=== PATIENT | female | born 1990 | race Two or more races ===

== ENCOUNTER 2016-12-18 22:21 | Emergency (ER) | payer MEDICAID ==
[2016-12-18] MEDS ORDERED: HYDROcod/ACETAM 5/325 MG TABLET PO STA (22:55)
[2016-12-18] MEDS ORDERED: ONDANSETRON ODT 4 MG TABLET TL STA (22:55)
[2016-12-18] MEDS ORDERED: HYDROcod/ACETAM 5/325 MG TABLET ONE (23:04)
[2016-12-18] MEDS ORDERED: ONDANSETRON ODT 4 MG TABLET ONE (23:04)
[2016-12-19] MEDS ORDERED: ONDANSETRON ODT 4 MG Prepack 2 TL STA (01:00)
[2016-12-19] MEDS ORDERED: HYDROcod/ACET 5/325 Prepack 6 PO STA (01:00)
[2016-12-19] MEDS ORDERED: ONDANSETRON ODT 4 MG Prepack 2 TL ONE (01:01)
[2016-12-19] MEDS ORDERED: HYDROcod/ACET 5/325 Prepack 6 PO ONE (01:01)
== END 2016-12-19 01:08 | disposition home or self-care (01) ==
DX: O21.0 Mild hyperemesis gravidarum (principal); Z3A.08 8 weeks gestation of pregnancy; O99.331 Smoking (tobacco) complicating pregnancy, first trimester; M54.9 Dorsalgia, unspecified
CPT/HCPCS: 36415; 76801; 76817; 81003; 84702; 85025; 86900; 86901; 99283; A9270; Q0162

== ENCOUNTER 2017-01-02 18:54 | Emergency (ER) | payer MEDICAID | END 2017-01-02 20:32 | disposition home or self-care (01) | DX: M54.5 Low back pain (principal); R03.0 Elevated blood-pressure reading, without diagnosis of hypertension; F17.200 Nicotine dependence, unspecified, uncomplicated ==

== ENCOUNTER 2017-01-05 23:39 | Emergency (ER) | payer MEDICAID ==
[2017-01-06] MEDS ORDERED: SODIUM CHLORIDE 0.9% 1,000 ML IV ONE (00:06)
[2017-01-06] MEDS ORDERED: diphenhydrAMINE INJ 50 MG/ML VIAL IVP STA (00:09)
[2017-01-06] MEDS ORDERED: METOCLOPRAMIDE 10 MG/2 ML VIAL IVP STA (00:09)
[2017-01-06] MEDS ORDERED: METOCLOPRAMIDE 10 MG/2 ML VIAL IVP ONE (00:23)
[2017-01-06] MEDS ORDERED: diphenhydrAMINE INJ 50 MG/ML VIAL ONE (00:23)
== END 2017-01-06 01:14 | disposition home or self-care (01) ==
DX: O21.0 Mild hyperemesis gravidarum (principal); O99.331 Smoking (tobacco) complicating pregnancy, first trimester; Z3A.10 10 weeks gestation of pregnancy

== ENCOUNTER 2017-01-28 15:23 | Outpatient (CLI) | payer MEDICAID | END 2017-01-28 15:24 | disposition home or self-care (01) | LOC: LAB.R 15:23 | PROVIDERS: ATTEND Obstetrics & Gynecology | DX: Z11.3 Encounter for screening for infections with a predominantly sexual mode of transmission (principal) | CPT/HCPCS: 87491; 87591 ==

== ENCOUNTER 2017-02-02 12:04 | Outpatient (CLI) | payer MEDICAID ==
[2017-02-02 12:44] LABS: BILIRUBIN,URINE NEGATIVE (NEGATIVE)
[2017-02-02 12:49] LABS: BASOPHILS % (AUTO) 0.2 %; EOSINOPHILS # (AUTO) 0.2 10^3/uL (0.0-0.7); EOSINOPHILS % (AUTO) 2.2 %; HCT - HEMATOCRIT 32.9 % (37.0-47.0); HGB - HEMOGLOBIN 11.4 g/dL (12.0-16.0); LYMPHOCYTES % (AUTO) 17.8 %; MEAN CORPUSCULAR HEMOGLOBIN 28.4 pg (27.0-31.0); MEAN CORPUSCULAR HGB CONC 34.8 g/dL (32.0-36.0); MEAN CORPUSCULAR VOLUME 81.6 fL (81.0-99.0); MEAN PLATELET VOLUME 8.3 fL (7.9-10.8); MONOCYTES # (AUTO) 0.6 10^3/uL (0.0-1.0); MONOCYTES % (AUTO) 5.2 %; NEUTROPHILS # (AUTO) 8.4 10^3/uL (1.5-6.6); NEUTROPHILS % (AUTO) 74.6 %; RED BLOOD COUNT 4.03 10^6/uL (4.20-5.40); UNCORRECTED WHITE BLOOD COUNT 11.2 x10^3/uL; WHITE BLOOD COUNT 11.2 x10^3/uL (4.8-10.8)
[2017-02-02 12:59] LABS: WBC,URINE 0-3 /HPF (0-5)
[2017-02-03 10:38] LABS: TEST RESULT REPORT (())
[2017-02-11 12:21] LABS: TEST RESULT REPORT (())
== END 2017-02-02 12:05 | disposition home or self-care (01) ==
LOC: LAB 12:04
PROVIDERS: ATTEND Obstetrics & Gynecology
DX: Z36 Encounter for antenatal screening of mother (principal)
CPT/HCPCS: 36415; 81001; 81511; 81599; 85025; 86762; 86780; 86850; 86900; 86901; 87340; 87389

== ENCOUNTER 2017-02-06 13:07 | Emergency (ER) | payer MEDICAID ==
[2017-02-06 13:19] VITALS: BP 117/70
--- NOTE | 2017-02-06 14:57 | ED Physician Documentation ---
PD HPI BACK PAIN - Stated complaint Stated Complaint: BACK PAIN - Chief complaint Chief Complaint: Back Pain - History obtained from History obtained from: Patient - History of Present Illness Timing - onset: How many days ago (last few days worse pain; back has been hurting for several weeks lately, diffuse lower back. She saw PCP and had several muscle injections (?trigger point) but did not really help. No meds Rx per patient.) Timing - duration: Weeks Timing - details: Gradual onset, Still present, Waxing and waning Location: Lower, Right, Left, Other (does not radiate to legs) Quality: Pain, Spasm Associated symptoms: No: Fever, Weakness, Numbness Improves with: Rest Worsened by: Movement, Lifting Contributing factors: No: Lifting, Twisting, Trauma Similar symptoms before: Diagnosis (muscular back pain) Recently seen: Clinic Review of Systems Constitutional: denies: Fever, Chills : denies: Dysuria, Frequency Skin: denies: Rash Neurologic: denies: Focal weakness, Numbness PD PAST MEDICAL HISTORY - Past Medical History 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) - Past Surgical History Past Surgical History: Yes /AIRCRAFT STEEL 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: section - Present Medications Home Medications: Ambulatory Orders Medication Instructions Recorded Confirmed HYDROcod/ACETAM 5/325 [[place] 5/325] 1 - 2 ea PO Q6H PRN #12 tablet 12/19/16 Ondansetron HCl [Zofran] 4 mg PO Q6HR PRN #14 tablet 12/19/16 02/06/17 Dexamethasone [Decadron] 4 mg PO DAILY #5 tablet 02/06/17 Methocarbamol [Robaxin] 500 mg PO Q6H PRN #25 tablet 02/06/17 Naproxen 375 mg PO BID #20 tablet 02/06/17 Ondansetron HCl [Zofran] 4 mg PO Q6H PRN #20 tablet 02/06/17 Oxycodone HCl/Acetaminophen 1 each PO Q6H PRN #20 tablet 02/06/17 [Percocet 5-325 mg Tablet] - Allergies Allergies/Adverse Reactions: Allergies Allergy/AdvReac Type Severity Reaction Status Date / Time walnut Allergy Unknown Verified 02/06/17 13:19 - Living Situation Living Arrangement: reports: At home - Social History Does the pt smoke?: Yes Smoking Status: Current every day smoker Does the pt drink ETOH?: No Does the pt have substance abuse?: No - Family History Family history: denies: Aortic aneursym, Aortic dissection - Immunizations Immunizations are current?: Yes - POLST Patient has POLST: No Results - Vitals Vitals: Oxygen O2 Source Room air PD MEDICAL DECISION MAKING - ED course Complexity details: considered differential, d/w patient Departure - Departure Disposition: Home, Self Care Clinical Impression: Back pain Qualifiers: Back pain location: low back pain Chronicity: acute Back pain laterality: bilateral Sciatica presence: without sciatica Qualified Code(s): M54.5 - Low back pain Condition: Stable Record reviewed to determine appropriate education?: Yes Instructions: ED Low Back Pain Injury Follow-Up: Jeff Jones MD [Provider Admit Priv/Credential] - Prescriptions: Dexamethasone [Decadron] 4 mg PO DAILY #5 tablet Naproxen 375 mg PO BID #20 tablet Oxycodone HCl/Acetaminophen [Percocet 5-325 mg Tablet] 1 each PO Q6H PRN #20 tablet PRN Reason: Pain Methocarbamol [Robaxin] 500 mg PO Q6H PRN #25 tablet PRN Reason: Spasms Ondansetron HCl [Zofran] 4 mg PO Q6H PRN #20 tablet PRN Reason: Nausea / Vomiting Comments: Heat and gentle range of motion for back. Naproxen twice daily for a week. Decadron also for inflammation daily for days. Robaxin muscle relaxant 3 times daily. Add Percocet pain med as needed for pain. Recheck with AIRCRAFT STEEL FABRICATOR/PMD next week. These are all okay at this point in (No anti-inflammatories as you get later in , like after 28-30 weeks). Discharge Date/Time: 02/06/17 15:47
[2017-02-06] MEDS ORDERED: METHOCARBAMOL 500 MG TABLET PO STA ×2 (15:12→15:39)
[2017-02-06] MEDS ORDERED: METHOCARBAMOL 500 MG TABLET PO ONE ×2 (15:21→15:42)
[2017-02-06] MEDS ORDERED: ONDANSETRON ODT 4 MG TABLET TL STA (15:38)
[2017-02-06] MEDS ORDERED: oxyCOD/ACETAMIN 5 MG/325 MG TABLET PO STA (15:38)
[2017-02-06] MEDS ORDERED: ONDANSETRON ODT 4 MG TABLET ONE (15:42)
[2017-02-06] MEDS ORDERED: oxyCOD/ACETAMIN 5 MG/325 MG TABLET PO ONE (15:42)
== END 2017-02-06 15:47 | disposition home or self-care (01) ==
LOC: ED 13:07
DX: O26.899 Other specified pregnancy related conditions, unspecified trimester (principal); M54.5 Low back pain; O99.330 Smoking (tobacco) complicating pregnancy, unspecified trimester; F17.200 Nicotine dependence, unspecified, uncomplicated; Z3A.00 Weeks of gestation of pregnancy not specified
CPT/HCPCS: 99283; A9270; Q0162

== ENCOUNTER 2021-02-02 13:13 | Emergency (ER) | payer MEDICAID ==
[2021-02-02 13:39] VITALS: BP 145/92
[2021-02-02] MEDS ORDERED: CLINDAMYCIN 150 MG CAPSULE PO STA (13:48)
[2021-02-02] MEDS ORDERED: oxyCODONE 5 MG TABLET PO STA (13:48)
--- NOTE | 2021-02-02 13:50 | ED Physician Documentation ---
History of Present Illness - Stated complaint Stated Complaint: TOOTH PX - Chief complaint Chief Complaint: Heent - History obtained from History obtained from: Patient - Additonal information Additional information: 30-year-old woman presents with severe dental pain. Is been going on for most of the week. Saw dentist and was started on Zithromax and Peridex. Scheduled for extraction on . Presents because pain was uncontrolled. Denies fevers or facial swelling. 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) - Past Surgical History Past Surgical History: Yes /FLYER REPAIRER: section - Present Medications Home Medications: Ambulatory Orders Medication Instructions Recorded Confirmed HYDROcod/ACETAM 5/325 [[place] 5/325] 1 - 2 ea PO Q6H PRN #12 tablet 12/19/16 02/06/17 Ondansetron HCl [Zofran] 4 mg PO Q6HR PRN #14 tablet 12/19/16 02/06/17 Naproxen 375 mg PO BID #20 tablet 02/06/17 Ondansetron HCl [Zofran] 4 mg PO Q6H PRN #20 tablet 02/06/17 Oxycodone HCl/Acetaminophen 1 each PO Q6H PRN #20 tablet 02/06/17 [Percocet 5-325 mg Tablet] dexAMETHasone [Decadron] 4 mg PO DAILY #5 tablet 02/06/17 methocarbamoL [Robaxin] 500 mg PO Q6H PRN #25 tablet 02/06/17 Ondansetron Odt [Zofran] 4 mg TL Q6H PRN #10 tablet 02/02/21 Oxycodone HCl/Acetaminophen 1 - 2 each PO Q6H PRN #14 tablet 02/02/21 [Percocet 5-325 mg Tablet] clindamycin HCL [Cleocin HCl] 300 mg PO QID #28 cap 02/02/21 - Allergies Allergies/Adverse Reactions: Allergies Allergy/AdvReac Type Severity Reaction Status Date / Time walnut Allergy Unknown Verified 02/02/21 13:39 - Social History Does the pt smoke?: Yes Smoking Status: Current every day smoker Does the pt drink ETOH?: No Does the pt have substance abuse?: No - Immunizations Immunizations are current?: Yes - POLST Patient has POLST: No PD ED PE NORMAL - Vitals Vital signs reviewed: Yes - General General: Alert and oriented X 3, No acute distress - HEENT HEENT: Other (Generally poor dentition with a quite tender last molar on the right mandible. No trismus or sublingual edema.) - Neck Neck: Supple, no meningeal sign, No bony TTP - Neuro Neuro: Alert and oriented X 3, Normal speech Results - Vitals Vitals: Vital Signs - 24 hr 02/02/21 13:34 Temperature 36.5 C Heart Rate 68 Respiratory 16 Rate Blood Pressure 145/92 H O2 Saturation 96 Oxygen O2 Source Room air PD MEDICAL DECISION MAKING - ED course ED course: I am prescribing a short course of short-acting opioid pain medication for this patient. I have reviewed the patients DANDY TENDER and no concerning findings were noted. I have discussed that the opioids are for short term therapy only, and will not be refilled from the ED. Departure - Departure Disposition: Home, Self Care Clinical Impression: Dental abscess Condition: Good Record reviewed to determine appropriate education?: Yes Instructions: ED Abscess Dental Prescriptions: clindamycin HCL [Cleocin HCl] 300 mg PO QID #28 cap Oxycodone HCl/Acetaminophen [Percocet 5-325 mg Tablet] 1 - 2 each PO Q6H PRN #14 tablet PRN Reason: pain Ondansetron Odt [Zofran] 4 mg TL Q6H PRN #10 tablet PRN Reason: Nausea / Vomiting Comments: Follow-up with the dentist on as scheduled. Return for new or worsening symptoms. I am prescribing a short course of narcotic pain medication for you. These are potentially dangerous and addictive medications that should be used carefully. These medications may constipate you. Take an [id number] stool softener (docusate) twice daily with plenty of water while taking these medications. If you go 24 hours without a bowel movement, take [id number] miralax, per package instructions. Do not drink or drive while taking these medications. If you received narcotic or sedating medications while in the emergency department, do not drive for 24 hours. Store this medication in a safe, secure place and out of reach of children. It is a violation of federal law to give or sell this medication to another person or to use in a manner other than prescribed. The ED will not refill narcotic prescriptions, including prescriptions lost or stolen. To dispose of unwanted medications: 1. [facility] at [address] in [place] has a medication drop box. They accept prescription medications (in pill form) Thursday through Thursday 9:00 a.m. to 5:00 p.m. 2. The [facility] accepts prescription medications (in pill form only) for disposal year round. Call for more information. 3. Contact the [facility] for the next [facility] sponsored prescription drug collection event. , [phone], or [phone]; Note that many narcotic pain relievers also contain Tylenol/acetaminophen. Please ensure that your total dose of acetaminophen from all sources does not exceed 3 g (3000 mg) per day.
[2021-02-02] MEDS ORDERED: ONDANSETRON ODT 4 MG TABLET TL STA (13:58)
== END 2021-02-02 14:10 | disposition home or self-care (01) ==
LOC: ED 13:13
DX: K04.7 Periapical abscess without sinus (principal); F17.200 Nicotine dependence, unspecified, uncomplicated
CPT/HCPCS: 99282; 99283; A9270; Q0162

== ENCOUNTER 2021-03-17 11:42 | Outpatient (CLI) | payer MEDICAID | END 2021-03-17 11:43 | disposition critical access hospital (66) | LOC: EMS 11:42 | DX: S01.111A Laceration without foreign body of right eyelid and periocular area, initial encounter (principal); S91.012A Laceration without foreign body, left ankle, initial encounter; H53.8 Other visual disturbances; R45.86 Emotional lability; X58.XXXA Exposure to other specified factors, initial encounter | CPT/HCPCS: A0425; A0429; A0999 ==

== ENCOUNTER 2021-03-17 12:02 | Observation (INO) | payer MEDICAID ==
[2021-03-17] MEDS ORDERED: MIDAZOLAM 10 MG/5 ML UDC PO STA (12:37)
[2021-03-17] MEDS ORDERED: TETANUS/DIPHTHERIA/PERTUSSIS 0.5 ML SYRINGE IM ONE (12:38)
[2021-03-17 13:18] LABS: BASOPHILS # (AUTO) 0.1 10^3/uL (0.0-0.1); BASOPHILS % (AUTO) 0.8 %; EOSINOPHILS # (AUTO) 0.3 10^3/uL (0.0-0.7); HCT - HEMATOCRIT 41.1 % (37.0-47.0); HGB - HEMOGLOBIN 13.6 g/dL (12.0-16.0); LYMPHOCYTES # (AUTO) 4.1 10^3/uL (1.5-3.5); LYMPHOCYTES % (AUTO) 42.9 %; MEAN CORPUSCULAR HEMOGLOBIN 28.9 pg (27.0-31.0); MEAN CORPUSCULAR HGB CONC 33.1 g/dL (32.0-36.0); MEAN CORPUSCULAR VOLUME 87.4 fL (81.0-99.0); MEAN PLATELET VOLUME 9.7 fL (7.9-10.8); MONOCYTES # (AUTO) 1.1 10^3/uL (0.0-1.0); NEUTROPHILS # (AUTO) 4.1 10^3/uL (1.5-6.6); NEUTROPHILS % (AUTO) 42.2 %; PLT - PLATELET COUNT 302 10^3/uL (130-450); RED CELL DISTRIBUTION WIDTH 13.9 % (12.0-15.0); WHITE BLOOD COUNT 9.6 x10^3/uL (4.8-10.8)
--- NOTE | 2021-03-17 13:19 | XRAY Report ---
PROCEDURE: Chest 1 View X-Ray INDICATIONS: possible trauma TECHNIQUE: One view of the chest was acquired. COMPARISON: None FINDINGS: Surgical changes and devices: None. Lungs and pleura: No pleural effusions or pneumothorax. Lungs are clear. Mediastinum: Mediastinal contours appear normal. Heart size is normal. Bones and chest wall: No suspicious bony lesions. No displaced rib fractures are seen. Overlying s oft tissues appear unremarkable. IMPRESSION: Unremarkable portable chest. No displaced rib fracture or pneumothorax is detected. If there is strong clinical concern for a post traumatic abnormality that is not seen on this plain f ilm study, then please consider a dedicated chest CT with IV contrast for further evaluation. Reviewed by: Yan Castillo MD on 03/17/2021 12:18 PM CONNIE Approved by: Yan Castillo MD on 03/17/2021 12:18 PM CONNIE Station ID: [id number]
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
[2021-03-17 13:25] LABS: PT - PROTHROMBIN TIME 11.6 secs (9.9-12.6)
[2021-03-17 13:32] LABS: PARTIAL THROMBOPLASTIN TIME 27.7 secs (24.9-33.3)
[2021-03-17 14:36] LABS: ALBUMIN 4.9 g/dL (3.2-5.5); ALBUMIN/GLOBULIN RATIO 1.7 (1.0-2.2); BILIRUBIN,TOTAL 0.6 mg/dL (0.2-1.0); CALCIUM 8.9 mg/dL (8.5-10.3); CREATININE 0.8 mg/dL (0.4-1.0); ETOH - ETHANOL 252.3 mg/dL; POTASSIUM 3.8 mmol/L (3.5-5.0); TOTAL PROTEIN 7.8 g/dL (6.7-8.2)
[2021-03-17] MEDS ORDERED: SODIUM CHLORIDE 0.9% 1,000 ML IV STA ×2 (15:19→17:57)
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
[2021-03-17] MEDS ORDERED: IOVERSOL 320 100 ML VIAL IVP ONE ×2 (15:56→17:20)
--- NOTE | 2021-03-17 16:32 | CT Report ---
PROCEDURE: Abdomen/Pelvis W INDICATIONS: pancreatitis CONTRAST: IV CONTRAST: Optiray 320 ml: 100 PO CONTRAST: *NO PO CONTRAST TECHNIQUE: After the administration of intravenous contrast, 5 mm thick sections acquired from the diaphragms to the symphysis. 5 mm thick coronal and sagittal reformats were acquired. For radiation dose reducti on, the following was used: automated exposure control, adjustment of mA and/or kV according to franki ent size. COMPARISON: None. FINDINGS: Image quality: Excellent. ABDOMEN: Lung bases: There is dependent atelectasis bilaterally. Heart size is normal. Solid organs: Evaluation of the liver demonstrates no focal hepatic lesions. Gallbladder appears wit hin normal limits without calcified gallstones. Biliary system is non dilated. The spleen is normal in size. Pancreas enhances normally without peripancreatic fat stranding or fluid collections. No ad renal nodules. Kidneys demonstrate no hydronephrosis. Peritoneum and bowel: Bowel loops demonstrate normal wall thickness and caliber. The appendix is nor mal in appearance. There is mild colonic diverticulosis without acute diverticulitis. No free fluid o r air. Nodes and vessels: No retroperitoneal or mesenteric adenopathy by size criteria. Aorta and inferior vena cava are normal in size. Miscellaneous: No ventral hernias. PELVIS: Genitourinary: Bladder wall thickness is normal. Bilateral ovarian cysts are demonstrated, measuring up to 2.7 cm on the left. Uterus and ovaries appear within normal size limits. Miscellaneous: No inguinal hernias or adenopathy. Bones: No suspicious bony lesions. No vertebral body compression fractures. IMPRESSION: 1. No CT evidence of acute pancreatitis. Recommend correlation with laboratory values. No biliary or pancreatic duct dilatation. No peripancreatic fluid collections. 2. Colonic diverticulosis without acute diverticulitis. 3. Bilateral ovarian cysts likely represent physiologic follicular cysts. Reviewed by: Matthew Banda MD on 03/17/2021 4:31 PM PDT Approved by: Matthew Banda MD on 03/17/2021 4:31 PM PDT Station ID: [id number]
[2021-03-17] MEDS ORDERED: ACETAMINOPHEN 325 MG TABLET PO STA (17:56)
[2021-03-17] MEDS ORDERED: KETOROLAC 15 MG/ML VIAL IVP STA (17:56)
[2021-03-17] MEDS ORDERED: MORPHINE 2 MG/ML CARPUJECT IVP STA (17:56)
[2021-03-17] MEDS ORDERED: SODIUM CHLORIDE FLUSH 0.9% 10 ML SYRINGE IVP PRN (18:07)
[2021-03-17 18:11] LABS: MUDS CUTOFF CONCENTRATIONS CUTOFF CONC BELOW:
[2021-03-17 18:12] LABS: BILIRUBIN,URINE NEGATIVE (NEGATIVE); GLUCOSE, URINE (UA) NEGATIVE (NEGATIVE); KETONES,URINE (UA) NEGATIVE (NEGATIVE); LEUKOCYTE ESTERASE, URINE NEGATIVE (NEGATIVE); NITRITE,URINE NEGATIVE (NEGATIVE); OCCULT BLOOD,URINE NEGATIVE (NEGATIVE); PROTEIN,URINE NEGATIVE (NEGATIVE); UROBILINOGEN,URINE 0.2 (NORMAL) E.U./dL (NORMAL)
[2021-03-17 18:13] LABS: CLARITY,URINE CLEAR (CLEAR)
[2021-03-17] MEDS ORDERED: ACETAMINOPHEN 325 MG TABLET PO PRN (18:18)
[2021-03-17] MEDS ORDERED: ONDANSETRON 4 MG/2 ML VIAL IVP STA (18:18)
[2021-03-17] MEDS ORDERED: LORazepam 2 MG/ML VIAL IVP PRN (18:20)
[2021-03-17 18:39] LABS: AMPHETAMINE SCREEN,URINE NEGATIVE (NEGATIVE); BARBITURATE SCREEN,UR NEGATIVE (NEGATIVE); BENZODIAZEPINES SCREEN, URINE NEGATIVE (NEGATIVE); COCAINE SCREEN URINE NEGATIVE (NEGATIVE); METHADONE SCREEN, URINE NEGATIVE (NEGATIVE); METHAMPHETAMINES SCREEN, URINE NEGATIVE (NEGATIVE); OPIATE SCREEN, URINE NEGATIVE (NEGATIVE); OXYCODONE SCREEN, URINE POSITIVE (NEGATIVE); PROPOXYPHENE SCREEN, URINE NEGATIVE (NEGATIVE); THC CANNABINOID SCREEN, URINE POSITIVE (NEGATIVE); TRICYCLIC ANTIDEPRESSANT,URINE NEGATIVE (NEGATIVE)
[2021-03-17] MEDS ORDERED: SODIUM CHLORIDE 0.9% 1,000 ML IV SCH (19:00)
[2021-03-17] MEDS: HYDROmorphone 0.5 MG/0.5 ML SYRINGE IVP PRN (19:28)
[2021-03-17 19:49] LABS: B. PARAPERTUSSIS- RESP PCR PAN NOT DETECTED; B. PERTUSSIS- RESP PCR PANEL NOT DETECTED; C. PNEUMONIAE- RESP PCR PANEL NOT DETECTED; CORONAVIRUS 229E-RESP PCR NOT DETECTED; CORONAVIRUS HKU1-RESP PCR NOT DETECTED; CORONAVIRUS NL63-RESP PCR NOT DETECTED; CORONAVIRUS OC43-RESP PCR NOT DETECTED; HUMAN METAPNEUMOVIRUS NOT DETECTED; INFLUENZA A- RESP PCR PANEL NOT DETECTED; INFLUENZA B - RESP PCR PANEL NOT DETECTED; M. PNEUMONIAE- RESP PCR PANEL NOT DETECTED; PARAINFLUENZA VIRUS 1 NOT DETECTED; PARAINFLUENZA VIRUS 2 NOT DETECTED; PARAINFLUENZA VIRUS 3 NOT DETECTED; PARAINFLUENZA VIRUS 4 NOT DETECTED; RHINOVIRUS/ENTEROVIRUS NOT DETECTED; RSV- RESP PCR PANEL NOT DETECTED; SARS-CoV-2 -RESP PCR PANEL NOT DETECTED
[2021-03-17] MEDS: ONDANSETRON 4 MG/2 ML VIAL IVP PRN (21:46)
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
[2021-03-18] MEDS ORDERED: NICOTINE 14 MG PATCH TOP PRN (00:24)
[2021-03-18] MEDS: D5NS W/20 MEQ KCL 1,000 ML IV SCH ×2 (01:05→09:43)
[2021-03-18] MEDS: SODIUM CHLORIDE FLUSH 0.9% 10 ML SYRINGE IVP SCH ×2 (01:10→10:02)
[2021-03-18] MEDS: HYDROmorphone 0.5 MG/0.5 ML SYRINGE IVP PRN (01:42)
[2021-03-18] MEDS: ONDANSETRON 4 MG/2 ML VIAL IVP PRN ×2 (01:42→09:53)
[2021-03-18 05:41] LABS: BASOPHILS # (AUTO) 0.1 10^3/uL (0.0-0.1); BASOPHILS % (AUTO) 0.6 %; EOSINOPHILS # (AUTO) 0.1 10^3/uL (0.0-0.7); EOSINOPHILS % (AUTO) 1.3 %; HGB - HEMOGLOBIN 11.6 g/dL (12.0-16.0); LYMPHOCYTES # (AUTO) 2.2 10^3/uL (1.5-3.5); MEAN CORPUSCULAR HEMOGLOBIN 28.6 pg (27.0-31.0); MEAN CORPUSCULAR HGB CONC 32.2 g/dL (32.0-36.0); MEAN CORPUSCULAR VOLUME 88.7 fL (81.0-99.0); MEAN PLATELET VOLUME 10.2 fL (7.9-10.8); MONOCYTES # (AUTO) 0.5 10^3/uL (0.0-1.0); MONOCYTES % (AUTO) 5.2 %; NEUTROPHILS % (AUTO) 70.6 %; PLT - PLATELET COUNT 242 10^3/uL (130-450); RED BLOOD COUNT 4.06 10^6/uL (4.20-5.40); RED CELL DISTRIBUTION WIDTH 14.3 % (12.0-15.0)
[2021-03-18 05:50] LABS: CALCIUM 7.8 mg/dL (8.5-10.3); CREATININE 0.7 mg/dL (0.4-1.0); POTASSIUM 3.8 mmol/L (3.5-5.0)
[2021-03-18] MEDS ORDERED: MULTIVITAMIN 10 ML, THIAMINE INJ 100 MG, FOLIC ACID INJ 1 MG in SODIUM CHLORIDE 0.9% 1,... IV SCH (09:00)
[2021-03-18] MEDS ORDERED: THIAMINE 100 MG TABLET PO SCH (09:00)
[2021-03-18] MEDS ORDERED: PRENATAL VITAMIN TABLET PO SCH (09:00)
[2021-03-18 09:44] VITALS: BP 127/69
[2021-03-18] MEDS: HYDROcod/ACETAM 5/325 MG TABLET PO PRN ×2 (09:53→14:53)
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
--- NOTE | 2021-03-18 10:21 | Discharge Plan ---
Discharge Plan Problem Reviewed?: Yes Disposition: 01 Home, Self Care Condition: Stable Diet: Soft Activity Restrictions: Activity as Tolerated Shower Restrictions: No Driving Restrictions: No Health Concerns: Were admitted for concern about pancreatitis. This was based on ER lipase level being 759 at admission. At the time you were intoxicated with an alcohol level of 252. You were maintained on IV hydration with normal saline. The following day your lipase had improved to 33. He denied any abdominal pain. You were able to tolerate a liquid diet with no trouble. As a result you are being discharged home in stable condition. You have been advised to eat a soft diet throughout today. You also have a laceration over your right eye. This was sutured in the ED. You may use Tylenol and or ibuprofen for the pain. This should heal over time. By social work regarding your alcohol use/ abuse. We advise you to stop, considering it effects on you overall health You may follow-up with your primary care physician as needed The above was explained to you and you expressed understanding. Plan of Treatment: Were admitted for concern about pancreatitis. This was based on ER lipase level being 759 at admission. At the time you were intoxicated with an alcohol level of 252. You were maintained on IV hydration with normal saline. The following day your lipase had improved to 33. He denied any abdominal pain. You were able to tolerate a liquid diet with no trouble. As a result you are being discharged home in stable condition. You have been advised to eat a soft diet throughout today. You also have a laceration over your right eye. This was sutured in the ED. You may use Tylenol and or ibuprofen for the pain. This should heal over time. By social work regarding your alcohol use/ abuse. We advise you to stop, considering it effects on you overall health You may follow-up with your primary care physician as needed The above was explained to you and you expressed understanding. Care Goals: Were admitted for concern about pancreatitis. This was based on ER lipase level being 759 at admission. At the time you were intoxicated with an alcohol level of 252. You were maintained on IV hydration with normal saline. The following day your lipase had improved to 33. He denied any abdominal pain. You were able to tolerate a liquid diet with no trouble. As a result you are being discharged home in stable condition. You have been advised to eat a soft diet throughout today. You also have a laceration over your right eye. This was sutured in the ED. You may use Tylenol and or ibuprofen for the pain. This should heal over time. By social work regarding your alcohol use/ abuse. We advise you to stop, considering it effects on you overall health You may follow-up with your primary care physician as needed The above was explained to you and you expressed understanding. Assessment: Were admitted for concern about pancreatitis. This was based on ER lipase level being 759 at admission. At the time you were intoxicated with an alcohol level of 252. You were maintained on IV hydration with normal saline. The following day your lipase had improved to 33. He denied any abdominal pain. You were able to tolerate a liquid diet with no trouble. As a result you are being discharged home in stable condition. You have been advised to eat a soft diet throughout today. You also have a laceration over your right eye. This was sutured in the ED. You may use Tylenol and or ibuprofen for the pain. This should heal over time. By social work regarding your alcohol use/ abuse. We advise you to stop, considering it effects on you overall health You may follow-up with your primary care physician as needed The above was explained to you and you expressed understanding. No Smoking: If you smoke, Please STOP! Call for help.
[2021-03-19] MEDS ORDERED: PRENATAL VITAMIN TABLET PO SCH (08:00)
== END 2021-03-18 15:05 | disposition home or self-care (01) ==
LOC: EDUNIT# → ED 12:02 → MS2 18:47
PROVIDERS: ADMIT Internal Medicine; ATTEND Internal Medicine
DX: K85.90 Acute pancreatitis without necrosis or infection, unspecified (principal); F10.129 Alcohol abuse with intoxication, unspecified; Y90.8 Blood alcohol level of 240 mg/100 ml or more; S01.111A Laceration without foreign body of right eyelid and periocular area, initial encounter; W06.XXXA Fall from bed, initial encounter; Y92.9 Unspecified place or not applicable; Z20.822 Contact with and (suspected) exposure to COVID-19; F17.210 Nicotine dependence, cigarettes, uncomplicated
CPT/HCPCS: 0202U; 36415; 70450; 71045; 72125; 74177; 80048; 80053; 80306; 80320; 81003; 83690; 84702; 85025; 85610; 85730; 86850; 86900; 86901; 90471; 90715; 96365; 96366; 96367; 96375; 96376; 99285; A9270; G0378; J1170; J2060; J3411; Q9967; 80307; 81001; 87086